=== PATIENT | female | born 1980 | race Caucasian/White ===

== ENCOUNTER 2017-09-25 08:18 | Day surgery (SDC) | payer OTHER ==
--- NOTE | 2017-09-22 09:51 | HP ---
Admitting History and Physical - Primary Care Physician PCP: Miladys Sequeira - Admission Chief Complaint: Right breast mass History of Present Illness: Patient is a 37 yo female with previous h/o of a right 2:30-3 oclock mass that had been biopsied in 2014 and was c/w a fibroadenoma. Patient reports that the mass has increased in size and palpable. Patient is presenting for a right breast WE. History Source: Patient Limitations to Obtaining History: No Limitations Home Medications - Allergies Allergies/Adverse Reactions: Allergies Allergy/AdvReac Type Severity Reaction Status Date / Time No Known Allergies Allergy Verified 09/22/17 09:51 Family Disease History - Family Disease History Family History: Unremarkable Review of Systems - Review of Systems Constitutional: reports: No Symptoms Breasts: reports: See HPI Physical Examination Constitutional: Yes: Well Nourished (Breast are symmetrical without skin changes or nipple discharge. Breast are diffusely nodular and dense. Palpable right upper inner quad breast mass noted is mobile.) Problem List - Problems (1) Breast mass, right Code(s): N63.10 - UNSPECIFIED LUMP IN THE RIGHT BREAST, UNSPECIFIED QUADRANT Assessment/Plan Plan: Right breast WE
[2017-09-24 15:35] VITALS: BMI 31.2
[2017-09-25] MEDS ORDERED: MIDAZOLAM HCL 2 MG/2 ML SINGLE DOSE VIAL ONE (09:11)
[2017-09-25] MEDS ORDERED: PROPOFOL 20 ML ONE ×2 (09:11→09:12)
[2017-09-25] MEDS ORDERED: LIDOCAINE HCL/PF 2% SDV 5ML VIAL ONE (09:12)
[2017-09-25] MEDS ORDERED: LIDOCAINE HCL 1%, 10 MG/ML (20ML VIAL) ONE (09:30)
[2017-09-25] MEDS ORDERED: GUM MASTIC/STORAX/MSAL/ALCOHOL 1 DRP DROPSBTL MC ONE (09:31)
[2017-09-25] MEDS ORDERED: DEXTROSE 5%-0.45% SALINE 1,000 ML IV SCH (09:45)
[2017-09-25] MEDS ORDERED: KETOROLAC TROMETHAMINE 30 MG/1 ML VIAL IVPUSH PRN (09:45)
[2017-09-25] MEDS ORDERED: ONDANSETRON 4 MG/2 ML VIAL IVPUSH PRN ×2 (09:45→10:30)
[2017-09-25] MEDS ORDERED: GLYCOPYRROLATE 0.2 MG/1 ML VIAL ONE (09:49)
[2017-09-25] MEDS ORDERED: LACTATED RINGERS SOLUTION 1,000 ML IV SCH (10:30)
[2017-09-25] MEDS ORDERED: PROMETHAZINE HCL 25 MG/1 ML VIAL IVPUSH PRN (10:30)
[2017-09-25 11:27] VITALS: TEMP 97.7
[2017-09-25 12:47] VITALS: BP 110/64; PULSE 58
--- NOTE | 2017-09-25 17:27 | OP ---
DATE OF OPERATION: 09/25/2017 PREOPERATIVE DIAGNOSIS: Right breast mass. POSTOPERATIVE DIAGNOSIS: Right breast mass. PROCEDURE: Excision of right breast mass. SURGEON: Miladys Sequeira MD COMPENSATION VICE PRESIDENT: CARLY Barton ANESTHESIA: MAC. SPECIMEN: Right breast mass. ESTIMATED BLOOD LOSS: Minimal. INDICATION FOR PROCEDURE: The patient is a 37-year-old woman who has had a palpable right upper inner quadrant mass for several years. Previous biopsy showed fibroadenoma. The mass has increased in size, and excision was recommended. The procedure, risks, and complications were discussed with her prior to surgery. DESCRIPTION OF PROCEDURE: The patient was identified in the holding area. Informed consent was obtained. The right breast was marked with a marker for laterality. She was taken to the operating room and placed on the operating table in the supine position. Sequential compression devices were placed on both legs. She was sedated. The right breast was prepped and draped in the usual fashion. Examination of the right breast showed a mass at the 2 o'clock position. The skin was infiltrated with 1% lidocaine. An incision was made directly overlying the mass with a scalpel. The incision was deepened using electrocautery. The mass was grasped with an Marciano clamp, and electrocautery was used to separate the mass from the surrounding tissue. The mass was removed in its entirety and placed in formalin. The mass was sent to Pathology. The wound was irrigated and inspected for hemostasis. There was a small piece of tissue that was possibly residual fibroadenoma, which was removed and included with the main specimen. The skin was infiltrated with 0.25% Marcaine. The incision was then closed using interrupted sutures of 3-0 Vicryl for the dermis and deep tissue and a running subcuticular closure of 4-0 Monocryl for the skin. The wound was cleaned, and Dermabond was applied. Once the Dermabond had sufficiently dried, a sterile dressing was used to cover the wound. The patient was awakened and taken to the PACU in satisfactory condition. At the end of the procedure, all sponge and instrument counts were correct. Aaron [id number]
--- NOTE | 2017-09-29 15:36 | PATH ---
Surgical Pathology Report Patient Name: TRACY SCHAFER [facility]. Rec. #: [id number] /Age/Gender: 1980 (Age: 37) / F Account: [id number] Location: [facility] Taken: 09/25/2017 Received: 09/25/2017 Reported: 09/29/2017 Physicians: Miladys Sequeira M.D. Specimen(s) Received RIGHT BREAST MASS Clinical History Palpable mass Final Diagnosis BREAST, RIGHT, MASS, EXCISION: FIBROADENOMA. Electronically Signed Noy Rivers M.D. Gross Description Received in formalin labeled "right breast mass," are 2 tanner-yellow, irregular, unoriented portions of fibroadipose tissue measuring 0.6 x 0.5 x 0.4 cm and 2.0 x 1.6 x 1.2 cm. There are no needle localization wires present. Neither specimen displays skin. The larger portion of tissue is inked blue and the smaller portion of tissue is inked in green. Sectioning reveals a 1.1 x 1.0 x 0.8 cm rubbery mass within the larger portion of tissue. The mass focally abuts the radial margin. The specimen is entirely submitted in 5 cassettes as follows: 1-bisected smaller portion of tissue; 3-6-ephfdmff and sequentially submitted larger portion of tissue. Time to formalin fixation: Less than one minute Total formalin fixation time: Approximately 8 hours. /09/25/2017 saudi09/25/2017
== END 2017-09-25 12:30 | disposition home or self-care (01) ==
LOC: FASU 08:18
PROVIDERS: ATTEND Surgery
PROC: 0HBT0ZX Excision of Right Breast, Open Approach, Diagnostic (ICD-10-PCS; principal; 2017-09-25 10:03)
DX: D24.1 Benign neoplasm of right breast (principal)
CPT/HCPCS: 84703; 88307-TC; 94760